=== PATIENT | male | born 1975 | race Caucasian/White ===

== ENCOUNTER 2018-10-26 20:13 | Emergency (ER) | payer SELFPAY ==
[2018-10-26 20:20] VITALS: BP 151/80; PULSE 81; RESP 16; TEMP 97.6; O2SAT 100
[2018-10-26] MEDS ORDERED: Sodium Chloride 0.9% 1,000 ML IV ONE (20:24)
--- NOTE | 2018-10-26 20:24 | C.PDOC ---
History Of Present Illness 43 year old male presents to the ED c/o abdominal pain and back pain for the past week. Patient also reports for the past 5 days, 5-8 loose stools daily. Patient states he took some imodium without relief. Patient denies fever, chill s, nausea, vomit, rash, dyauria, hematuria, recent travel. Time Seen by Provider: 10/26/18 20:23 Chief Complaint (Nursing): Abdominal Pain History Per: Patient History/Exam Limitations: no limitations Onset/Duration Of Symptoms: Days (5) Current Symptoms Are (Timing): Still Present Pain Scale Rating Of: 4 Location Of Pain/Discomfort: Epigastric Quality Of Discomfort: "Pain" Associated Symptoms: Diarrhea. denies: Fever, Nausea, Vomiting, Constipation, Urinary Symptoms Recent travel outside of the [place]: No Additional History Per: Patient Past Medical History Reviewed: Historical Data, Nursing Documentation, Vital Signs Vital Signs: Last Vital Signs Temp 97.6 F 10/26/18 20:18 Pulse 81 10/26/18 20:18 Resp 16 10/26/18 20:18 BP 151/80 H 10/26/18 20:18 Pulse Ox 100 10/26/18 20:18 - Medical History PMH: No Chronic Diseases Surgical History: No Surg Hx Family History: States: Unknown Family Hx - Social History Hx Alcohol Use: No Hx Substance Use: No Review Of Systems Constitutional: Negative for: Fever, Chills Cardiovascular: Negative for: Chest Pain Respiratory: Negative for: Shortness of Breath Gastrointestinal: Positive for: Abdominal Pain, Diarrhea. Negative for: Nausea, Vomiting Genitourinary: Negative for: Dysuria, Hematuria Musculoskeletal: Negative for: Back Pain Skin: Negative for: Rash Neurological: Negative for: Weakness, Numbness Physical Exam - Physical Exam Appears: Non-toxic, No Acute Distress Skin: Warm, Dry Head: Normacephalic Eye(s): bilateral: Normal Inspection Neck: Supple Chest: Symmetrical Cardiovascular: Rhythm Regular Respiratory: No Rales, No Rhonchi, No Wheezing Gastrointestinal/Abdominal: Soft, Tenderness (mid epigastric), No Guarding, No Rebound Back: No CVA Tenderness Extremity: Bilateral: Atraumatic, Normal Color And Temperature, Normal ROM Neurological/Psych: Oriented x3, Normal Speech, Normal Cognition Gait: Steady ED Course And Treatment - Laboratory Results Result Diagrams: 10/26/18 21:10 10/26/18 21:10 O2 Sat by Pulse Oximetry: 100 (ON RA) Pulse Ox Interpretation: Normal - CT Scan/US CT abd/pelvis Other Rad Studies (CT/US): Read By Radiologist, Radiology Report Reviewed CT/US Interpretation: EXAM: CT Abdomen and Pelvis with IV contrast. CLINICAL HISTORY: Abd pain/back pain/diarrhea. TECHNIQUE: Axial computed tomography images of the abdomen and pelvis with intravenous contrast. CONTRAST: With intravenous contrast. COMPARISON: None provided. FINDINGS: LUNG BASES: The lung bases appear clear. No pleural effusions are seen. LIVER: There is hepatomegaly. The liver measured approximately 19.5 cm in the midclavicular line. No hepatic mass. GALLBLADDER AND BILE DUCTS: The gallbladder appears within normal limits. No radioopaque gallstones are seen. No biliary ductal dilatation is evident. PANCREAS: Unremarkable. SPLEEN: Unremarkable. ADRENA L GLANDS: Unremarkable. KIDNEYS, URETERS, AND BLADDER: The kidneys appear within normal limits. There is no hydronephrosis or hydroureter. No urinary calculi are seen. The urinary bladder is normal in size and configuration. STOMACH AND BOWEL: Unremarkable appearance of the stomach. Circumferential surgical sutures are seen in the left upper abdomen thought to represent a site of previous small intestinal anastomosis. This segment is somewhat distended with liquid and solid stool. No definite evidence of bowel obstruction. There is some mucosal wall edematous thickening throughout the small and large intestine thought compatible with diffuse enterocolitis. Infectious or inflammatory e tiologies are thought most likely. APPENDIX: No evidence of acute appendicitis on CT examination. PERITONEUM: No free fluid. No free air. LYMPH NODES: No lymphadenopathy is evident. REPRODUCTIVE: Unremarkable as visualized. VASCULATURE: No evidence of abdominal aortic aneurysm. BONES: No aggressive appearing osseous lesion. No acute osseous pathology evident. IMPRESSION: 1. Evidence of diffuse enterocolitis. 2. A small intestinal surgical anastomosis seen within the left upper abdomen appears somewhat distended with solid and liquid stool. 3. Hepatomegaly. Measurement is given above. . Electronically signed on Oct 26, 2018 10:54:38 PM EST by: Rey Kirby M.D., MADDY Certified By ABR & CBC[employer]. Fellowship Trained MRI and CT Specialist Progress Note: Plan: - Labs. - Protonix 40 mg IVP. - IV fluids. - UA Reevaluation Time: 23:07 Reassessment Condition: Improved Medical Decision Making Medical Decision Making: Upon provider reevaluation patient is feeling better, is medically stable, and requires no further treatment in the ED at this time. Patient will be discharged home with Rx for zofran, flagyl,tramadol . Counseling was provided and all questions were answered regarding diagnosis and need for follow up with the referred clinic. There is agreement to discharge plan. Return if symptoms persist or worsen. Disposition Counseled Patient/Family Regarding: Studies Performed, Diagnosis, Need For Followup, Rx Given - Disposition Referrals: [facility] [Outside] [facility] [Outside] Disposition: HOME/ ROUTINE Disposition Time: 20:24 Condition: FAIR Additional Instructions: Please return if symptoms recur Prescriptions: Metronidazole [Flagyl] 500 mg PO TID #21 tablet Ondansetron ODT [Zofran ODT] 1 odt PO BID PRN #6 odt PRN Reason: Nausea/Vomiting traMADol [Ultram] 50 mg PO TID PRN #15 tab PRN Reason: Pain, Severe (8-10) Instructions: Acute Abdomen (Belly Pain), Adult (DC) Forms: [employer] (Micronesian) Print Language: ALBANIAN - Clinical Impression Clinical Impression: Abdominal pain - Scribe Statement The provider has reviewed the documentation as recorded by the Scribe Collin Pugh All medical record entries made by the Scribe were at my direction and personally dictated by me. I have reviewed the chart and agree that the record accurately reflects my personal performance of the history, physical exam, medical decision making, and the department course for this patient. I have also personally directed, reviewed, and agree with the discharge instructions and disposition.
[2018-10-26 21:13] LABS: BASO # 0.1 K/uL (0.0-0.2); BASO % 0.9 % (0.0-2.0); EOS # 0.1 K/uL (0.0-0.7); EOS % 1.3 % (0.0-4.0); HEMOGLOBIN 12.1 g/dL (12.0-18.0); LYMPH # 1.3 K/uL (1.0-4.3); LYMPH % 14.3 % (20.0-40.0); MEAN CELL VOLUME 86.5 fL (80.0-94.0); MEAN CORPUSCULAR HEMOGLOBIN 28.7 pg (27.0-31.0); MEAN CORPUSCULAR HGB CONC 33.2 g/dL (33.0-37.0); MEAN PLATELET VOLUME 8.2 fL (7.2-11.7); MONO # 0.8 K/uL (0.0-0.8); MONO % 9.5 % (0.0-10.0); NEUT # 6.5 K/uL (1.8-7.0); NRBC % 0.1 % (0.0-2.0); RBC 4.2 Mil/uL (4.40-5.90); RED CELL DISTRIBUTION WIDTH 13.4 % (11.5-14.5); WHITE BLOOD COUNT 8.8 K/uL (4.8-10.8)
[2018-10-26 21:18] LABS: URINE BILIRUBIN NEGATIVE (NEGATIVE); URINE BLOOD NEGATIVE (NEGATIVE); URINE CLARITY Clear (Clear); URINE COLOR Straw (YELLOW); URINE GLUCOSE (UA) NORMAL (Normal); URINE LEUKOCYTE ESTERASE NEG Leu/uL (Negative); URINE PROTEIN NEGATIVE (NEGATIVE); URINE UROBILINOGEN NORMAL mg/dL (0.2-1.0)
[2018-10-26 21:31] LABS: ALB/GLOB RATIO 1.1 (1.0-2.1); ALBUMIN 3.3 g/dL (3.5-5.0); ALT/SGPT 19 U/L (21-72); AST/SGOT 19 U/L (17-59); BLOOD UREA NITROGEN 11 mg/dL (9-20); CALCIUM 8.5 mg/dl (8.6-10.4); GFR NON-AFRICAN AMERICAN > 60; LIPASE 23 U/L (23-300)
[2018-10-26] MEDS ORDERED: Iodixanol 320 MG/ML 100 ML BOTTLE IV ONE (21:44)
--- NOTE | 2018-10-27 16:48 | CT ---
Date of service: 10/26/2018 PROCEDURE: CT Abdomen and Pelvis with contrast HISTORY: abd pain, back pain, diarrhea COMPARISON: None. TECHNIQUE: Following the intravenous administration of iodinated contrast material, a CT examination of the abdomen and pelvis was performed from the domes of the diaphragms to the symphysis pubis with reformatted datasets provided in axial, sagittal and coronal planes. Oral contrast was not administered as per referring physician request. Contrast dose: Visipaque 320, 100 cc Radiation dose: Total exam DLP = 520.81 mGy-cm. This CT exam was performed using one or more of the following dose reduction techniques: Automated exposure control, adjustment of the mA and/or kV according to patient size, and/or use of iterative reconstruction technique. FINDINGS: LOWER THORAX: Unremarkable. LIVER: Unremarkable. No gross lesion or ductal dilatation. GALLBLADDER AND BILE DUCTS: Unremarkable. PANCREAS: Unremarkable. No gross lesion or ductal dilatation. SPLEEN: Unremarkable. ADRENALS: Unremarkable. No mass. KIDNEYS AND URETERS: Unremarkable. No hydronephrosis. No solid mass. VASCULATURE: Unremarkable. No aortic aneurysm. No aortic atherosclerotic calcification or mural plaque present. BOWEL: Bowel is remarkable for postoperative anastomotic suture line identified at left upper quadrant bowel loop which is distended up to 5.0 cm. Variably mild to mildly distended loops of small large bowel are identified gas and stool in mildly distended bowel loops throughout the abdomen. There is slight swirling of the mesentery in the right upper quadrant however. Despite this pattern, there is no prominent dilatation transitioning into collapsed bowel. A definitive bowel obstruction pattern is not completely excluded and left upper quadrant dilated loop of bowel with anastomotic suture line may reflect intermittent or partial obstruction. This also may be postoperative deformity. Consider follow-up CT following oral contrast administration. APPENDIX: Normal appendix. PERITONEUM: Shotty and mildly enlarged central mesenteric and pericecal lymph node distribution may reflect mesenteric adenitis. No prominent ascites or free intra peritoneal gas collection identified. Limited pelvic fluid identified. BLADDER: Unremarkable. REPRODUCTIVE: Unremarkable. BONES: Advanced right hip osteoarthritis appreciated. OTHER FINDINGS: None. IMPRESSION: Complex bowel pattern including dilated loop of small bowel at the left upper quadrant with associated anastomotic suture line. No gross bowel dilatation is identified although there are numerous scattered segments of collapsed small and large bowel. Intermittent or partial small bowel obstruction is difficult to completely exclude, particularly given swelling pattern of central mesentery at the right paracentral abdomen. Please see discussion above. Trace pelvic ascites. Consider follow-up CT following oral contrast administration. The above interpretation is somewhat discrepant from the preliminary report provided by Nikhil, 10/26/2018 10:54 p.m..
== END 2018-10-26 20:23 | disposition home or self-care (01) ==
LOC: C.ER 20:13
DX: R10.9 Unspecified abdominal pain (principal)
CPT/HCPCS: 74177; 80053; 81001; 83690; 85025; 96374; 96376; 99281; C9113; J7030; Q9967

== ENCOUNTER 2018-11-06 22:35 | Emergency (ER) | payer SELFPAY ==
[2018-11-06 22:43] VITALS: RESP 20
[2018-11-06] MEDS ORDERED: Iohexol 240 (50 ml) PO STA (23:14)
[2018-11-06 23:17] LABS: BASO # 0.1 K/uL (0.0-0.2); BASO % 1.1 % (0.0-2.0); EOS # 0.1 K/uL (0.0-0.7); HEMOGLOBIN 11.1 g/dL (12.0-18.0); LYMPH # 1.2 K/uL (1.0-4.3); LYMPH % 13.2 % (20.0-40.0); MEAN CORPUSCULAR HGB CONC 33.1 g/dL (33.0-37.0); MEAN PLATELET VOLUME 8.5 fL (7.2-11.7); MONO # 1.2 K/uL (0.0-0.8); MONO % 13.4 % (0.0-10.0); NEUT # 6.6 K/uL (1.8-7.0); NEUT % 71.3 % (50.0-75.0); NRBC % 0.1 % (0.0-2.0); RBC 3.72 Mil/uL (4.40-5.90); RED CELL DISTRIBUTION WIDTH 15.5 % (11.5-14.5); WHITE BLOOD COUNT 9.2 K/uL (4.8-10.8)
[2018-11-06] MEDS ORDERED: Sodium Chloride 0.9% 1,000 ML IV ONE (23:19)
[2018-11-06 23:23] LABS: MEAN CELL VOLUME 90.5 fL (80.0-94.0)
--- NOTE | 2018-11-06 23:24 | C.PDOC ---
History Of Present Illness Patient presents to ED c/o abdominal pain, nausea, diarrhea for approx 2 weeks. Patient was seen in the ED on 10/26/18, and discharged home with Flagyl, Tramadol and Zofran ODT. He reports he finished his course of antibiotics and initially felt better, but then his symptoms returned. He denies fever, chest pain, SOB, cough, dysuria/hematuria. PSHx of SBO with bowel resection x2. Surgeon: Dr. Angie Go <Tracey Lucas - Last Filed: 11/07/18 00:31> History Per: Patient, Family () History/Exam Limitations: no limitations Onset/Duration Of Symptoms: Days (2 weeks) Current Symptoms Are (Timing): Still Present Severity: Moderate Location Of Pain/Discomfort: Diffuse Quality Of Discomfort: "Pain" Associated Symptoms: Nausea, Diarrhea. denies: Fever, Chills, Vomiting, Urinary Symptoms <Tracey Lucas - Last Filed: 11/07/18 00:31> <Les Zhang - Last Filed: 11/07/18 03:16> Time Seen by Provider: 11/06/18 22:52 Chief Complaint (Nursing): Abdominal Pain Past Medical History Reviewed: Historical Data, Nursing Documentation, Vital Signs Vital Signs: Last Vital Signs Temp 97.6 F 11/06/18 22:37 Pulse 83 11/06/18 22:37 Resp 20 11/06/18 22:37 BP 120/76 11/06/18 22:37 Pulse Ox 100 11/06/18 22:37 - Medical History PMH: No Chronic Diseases Other Surgeries: SBO with resection x 2 Family History: States: No Known Family Hx - Social History Hx Alcohol Use: No Hx Substance Use: No - Immunization History Hx Tetanus Toxoid Vaccination: No Hx Influenza Vaccination: No Hx Pneumococcal Vaccination: No <Tracey Lucas - Last Filed: 11/07/18 00:31> Vital Signs: Last Vital Signs Temp 98.3 F 11/07/18 00:45 Pulse 72 11/07/18 02:00 Resp 20 11/07/18 02:00 BP 124/76 11/07/18 02:00 Pulse Ox 97 11/07/18 02:00 <Les Zhang - Last Filed: 11/07/18 03:16> Review Of Systems Constitutional: Negative for: Fever, Chills Cardiovascular: Negative for: Chest Pain, Palpitations Respiratory: Negative for: Cough, Shortness of Breath Gastrointestinal: Positive for: Nausea, Abdominal Pain, Diarrhea. Negative for: Vomiting Genitourinary: Negative for: Dysuria, Hematuria Skin: Negative for: Rash <Tracey Lucas - Last Filed: 11/07/18 00:31> Physical Exam - Physical Exam Appears: Well, Non-toxic, In Acute Distress (in mild pain) Skin: Normal Color, Warm, Dry Oral Mucosa: Moist Cardiovascular: Rhythm Regular Respiratory: Normal Breath Sounds, No Rales, No Rhonchi, No Wheezing Gastrointestinal/Abdominal: Bowel Sounds, Soft, Tenderness (mild diffuse TTP greatest at periumbilical area), Other (midline surgical scar) Back: Normal Inspection, No CVA Tenderness Neurological/Psych: Oriented x3 <Tracey Lucas - Last Filed: 11/07/18 00:31> ED Course And Treatment - Laboratory Results Result Diagrams: 11/06/18 23:15 11/06/18 23:15 O2 Sat by Pulse Oximetry: 100 (RA) Pulse Ox Interpretation: Normal Progress Note: Blood work, UA, CT scan abd/pelvis with PO contrast ordered and reviewed. Patient given IV NS bolus, IV toradol. <Tracey Lcuas - Last Filed: 11/07/18 00:31> - Laboratory Results Result Diagrams: 11/06/18 23:15 11/06/18 23:15 Lab Results: Total Bilirubin 0.5 mg/dL (0.2-1.3) 11/06/18 23:15 AST 19 U/L (17-59) 11/06/18 23:15 ALT 15 U/L (21-72) L D 11/06/18 23:15 Alkaline Phosphatase 69 U/L (38-126) 11/06/18 23:15 Total Protein 5.8 g/dL (6.3-8.3) L 11/06/18 23:15 Albumin 3.1 g/dL (3.5-5.0) L 11/06/18 23:15 Globulin 2.7 gm/dL (2.2-3.9) 11/06/18 23:15 Albumin/Globulin Ratio 1.2 (1.0-2.1) 11/06/18 23:15 Lipase 43 U/L (23-300) 11/06/18 23:15 Urine Color Straw (YELLOW) 11/07/18 00:39 Urine Clarity Clear (Clear) 11/07/18 00:39 Urine pH 7.0 (5.0-8.0) 11/07/18 00:39 Ur Specific Alliance 1.006 (1.003-1.030) 11/07/18 00:39 Urine Protein Negative mg/dL (NEGATIVE) 11/07/18 00:39 Urine Glucose (UA) Normal mg/dL (Normal) 11/07/18 00:39 Urine Ketones Negative mg/dL (NEGATIVE) 11/07/18 00:39 Urine Blood Negative (NEGATIVE) 11/07/18 00:39 Urine Nitrate Negative (NEGATIVE) 11/07/18 00:39 Urine Bilirubin Negative (NEGATIVE) 11/07/18 00:39 Urine Urobilinogen 4.0 mg/dL (0.2-1.0) 11/07/18 00:39 Ur Leukocyte Esterase Neg Denise/uL (Negative) 11/07/18 00:39 Urine WBC (Auto) < 1 /hpf (0-5) 11/07/18 00:39 Urine RBC (Auto) < 1 /hpf (0-3) 11/07/18 00:39 <Les Zhang - Last Filed: 11/07/18 03:16> Disposition <Tracey Lucas - Last Filed: 11/07/18 00:31> Counseled Patient/Family Regarding: Diagnosis - Disposition Disposition Time: 03:07 - POA Present On Arrival: None <Les Zhang - Last Filed: 11/07/18 03:16> - Disposition Referrals: [facility] [Outside] Disposition: HOME/ ROUTINE Condition: STABLE Prescriptions: Ciprofloxacin HCl [Cipro] 250 mg PO BID #14 tablet Metronidazole [Flagyl] 250 mg PO TID #20 tab Tramadol HCl/Acetaminophen [Ultracet Tablet] 1 each PO Q6 #10 tablet Instructions: Acute Abdomen (Belly Pain), Inflammatory Bowel Disease Forms: [employer] (Arabic), Gen Discharge Inst Cameroonian Print Language: DANISH - Clinical Impression Clinical Impression: Abdominal pain, Enteritis
[2018-11-06] MEDS ORDERED: Iohexol 240 (50 ml) ONE (23:26)
[2018-11-06 23:59] LABS: ALB/GLOB RATIO 1.2 (1.0-2.1); ALBUMIN 3.1 g/dL (3.5-5.0); ALT/SGPT 15 U/L (21-72); AST/SGOT 19 U/L (17-59); BLOOD UREA NITROGEN 18 mg/dL (9-20); CALCIUM 8.2 mg/dl (8.6-10.4); GFR NON-AFRICAN AMERICAN > 60; LIPASE 43 U/L (23-300)
[2018-11-07 00:45] LABS: URINE BILIRUBIN NEGATIVE (NEGATIVE); URINE BLOOD NEGATIVE (NEGATIVE); URINE CLARITY Clear (Clear); URINE COLOR Straw (YELLOW); URINE GLUCOSE (UA) NORMAL (Normal); URINE LEUKOCYTE ESTERASE NEG Leu/uL (Negative); URINE PROTEIN NEGATIVE (NEGATIVE)
[2018-11-07 01:59] VITALS: TEMP 98.3; O2SAT 97
[2018-11-07 02:02] VITALS: BP 124/76; PULSE 72
--- NOTE | 2018-11-07 11:48 | RAD ---
Date of service: 11/06/2018 PROCEDURE: Radiographs of the chest and abdomen (obstructive series) HISTORY: Abdominal pain, nausea/vomiting COMPARISON: No prior. TECHNIQUE: AP radiograph of the chest, with upright and supine radiographs of the abdomen. FINDINGS: CHEST: Lungs: The lungs are well inflated and clear. Cardiovascular: Normal size heart. No pulmonary vascular congestion. No aortic atherosclerotic calcification present Pleura: No pleural fluid. No pneumothorax. Other findings: None. ABDOMEN AND PELVIS: Bowel: The there is moderate amount of stool in the ascending colon. There are running sutures in the left mid abdomen. The bowel gas pattern is nonobstructive. Free air: None. Bones: Unremarkable. Other findings: None. IMPRESSION: Constipation. Nonobstructive bowel gas pattern. Clear lungs.
--- NOTE | 2018-11-07 11:54 | CT ---
PROCEDURE: CT Abdomen and Pelvis without IV contrast. HISTORY: abd pain, nausea, h/o SBO COMPARISON: CT abdomen and pelvis performed 10/26/18 TECHNIQUE: Contiguous axial images of the abdomen and pelvis. Oral contrast was administered. No IV contrast given. Coronal and Sagittal reformats generated and reviewed. Radiation dose: Total exam DLP = 345.51 mGy-cm. This CT exam was performed using one or more of the following dose reduction techniques: Automated exposure control, adjustment of the mA and/or kV according to patient size, and/or use of iterative reconstruction technique. FINDINGS: There is limited evaluation of the solid organs without the administration of IV contrast. LOWER THORAX: 6 mm pulmonary nodule, lingula. No visible consolidation, pleural effusion, or pneumothorax. Visualized portions of the heart appear within normal limits of size. LIVER: Hepatomegaly. GALLBLADDER AND BILE DUCTS: Unremarkable unenhanced appearance. PANCREAS: Unremarkable unenhanced appearance. SPLEEN: Unremarkable unenhanced appearance. ADRENALS: Unremarkable unenhanced appearance. KIDNEYS AND URETERS: No hydronephrosis or obstructing renal calculus. BLADDER: Decompressed urinary bladder limits evaluation. REPRODUCTIVE: Unremarkable. APPENDIX: The appendix is not identified. No secondary signs of acute appendicitis. BOWEL: The stomach is nondistended. The bowel loops appear within normal limits of caliber without evidence of intestinal obstruction. Extensive small bowel wall thickening; correlate clinically for enteritis. PERITONEUM: Small pelvic free fluid. No definite free air. LYMPH NODES: Scattered mesenteric/retroperitoneal lymph nodes, nonspecific. VASCULATURE: No aortic aneurysm. BONES: Osseous demineralization. Degenerative changes. Advanced right hip joint space narrowing OTHER FINDINGS: None. IMPRESSION: Extensive small bowel wall thickening; correlate clinically for enteritis. Small pelvic free fluid. 6 mm pulmonary nodule, lingula. Correlate with prior outside imaging if available of the chest. According to 2017 Fleischner criteria, the patient is low or high risk, this nodule may be followed with CT at 6-12 months is recommended and 18-24 months. Preliminary impression was provided by [employer]. Study marked for PA review.
== END 2018-11-07 04:07 | disposition home or self-care (01) ==
LOC: C.ER 22:35
DX: K52.9 Noninfective gastroenteritis and colitis, unspecified (principal); R10.9 Unspecified abdominal pain
CPT/HCPCS: 74022; 74176; 80053; 81001; 83690; 85025; 96374; 99284; J1885; J7030; Q9966

== ENCOUNTER 2018-11-25 09:29 | Emergency (ER) | payer OTHER ==
[2018-11-25 10:53] LABS: BASO # 0.1 K/uL (0.0-0.2); BASO % 1.3 % (0.0-2.0); EOS # 0.3 K/uL (0.0-0.7); EOS % 4.2 % (0.0-4.0); LYMPH # 1.3 K/uL (1.0-4.3); LYMPH % 20.4 % (20.0-40.0); MEAN CELL VOLUME 91.1 fL (80.0-94.0); MEAN CORPUSCULAR HEMOGLOBIN 29.5 pg (27.0-31.0); MEAN CORPUSCULAR HGB CONC 32.4 g/dL (33.0-37.0); MEAN PLATELET VOLUME 9.6 fL (7.2-11.7); MONO # 0.9 K/uL (0.0-0.8); MONO % 15.2 % (0.0-10.0); NEUT # 3.6 K/uL (1.8-7.0); NEUT % 58.9 % (50.0-75.0); NRBC % 0.2 % (0.0-2.0); RBC 4.4 Mil/uL (4.40-5.90); RED CELL DISTRIBUTION WIDTH 14.7 % (11.5-14.5); WHITE BLOOD COUNT 6.2 K/uL (4.8-10.8)
[2018-11-25 11:09] LABS: ALB/GLOB RATIO 1.3 (1.0-2.1); ALBUMIN 3.3 g/dL (3.5-5.0); ALT/SGPT 13 U/L (21-72); AST/SGOT 17 U/L (17-59); BLOOD UREA NITROGEN 18 mg/dL (9-20); CALCIUM 8.3 mg/dl (8.6-10.4); GFR NON-AFRICAN AMERICAN > 60; LIPASE 42 U/L (23-300)
[2018-11-25 11:14] LABS: SQUAMOUS EPITHIAL < 1 /hpf (0-5); URINE BILIRUBIN NEGATIVE (NEGATIVE); URINE BLOOD NEGATIVE (NEGATIVE); URINE CLARITY Clear (Clear); URINE COLOR Yellow (YELLOW); URINE GLUCOSE (UA) NORMAL (Normal); URINE LEUKOCYTE ESTERASE NEG Leu/uL (Negative); URINE PROTEIN NEGATIVE (NEGATIVE)
[2018-11-25] MEDS ORDERED: Sodium Chloride 0.9% 1,000 ML IV ONE (11:24)
[2018-11-25] MEDS ORDERED: Sodium Chloride 0.9% 1,000 ML ONE (11:51)
--- NOTE | 2018-11-25 12:29 | C.PDOC ---
History Of Present Illness 43 y/o male, with history of questionable SBO that required abdominal surgery several years ago for unknown reason, was seen on 10/26/18 and 11/06/18 for abdominal pain and treated for enteritis with antibiotics. Patient comes in today complaining that the pain came back, and is located on the left side. He denies fever, chills, nausea, vomiting, or diarrhea. Reports he had soft bowel movement today. Patient states he hasnt taken any medications for the pain. Time Seen by Provider: 11/25/18 10:11 Chief Complaint (Nursing): Abdominal Pain History Per: Patient History/Exam Limitations: no limitations Onset/Duration Of Symptoms: Hrs Current Symptoms Are (Timing): Still Present Past Medical History Reviewed: Historical Data, Nursing Documentation, Vital Signs Vital Signs: Last Vital Signs Temp 98.7 F 11/25/18 09:49 Pulse 78 11/25/18 09:49 Resp 17 11/25/18 09:49 BP 123/76 11/25/18 09:49 Pulse Ox 98 11/25/18 09:49 Family History: States: No Known Family Hx - Social History Hx Alcohol Use: No Hx Substance Use: No - Immunization History Hx Tetanus Toxoid Vaccination: No Hx Influenza Vaccination: No Hx Pneumococcal Vaccination: No Review Of Systems Constitutional: Negative for: Fever, Chills Cardiovascular: Negative for: Chest Pain Respiratory: Negative for: Shortness of Breath Gastrointestinal: Positive for: Abdominal Pain. Negative for: Nausea, Vomiting, Diarrhea Genitourinary: Negative for: Dysuria, Hematuria Musculoskeletal: Negative for: Back Pain Skin: Negative for: Rash Physical Exam - Physical Exam Appears: Non-toxic, No Acute Distress Skin: Warm, Dry, No Rash Head: Atraumatic, Normacephalic Eye(s): bilateral: PERRL, EOMI Oral Mucosa: Moist Neck: Supple Chest: No Tenderness Cardiovascular: Rhythm Regular, No Murmur Respiratory: No Rales, No Rhonchi, No Wheezing, Other (CTA bilaterally) Gastrointestinal/Abdominal: Soft, Tenderness (mild left hypogastric tenderness), No Distention, No Guarding, No Rebound, Other (vertical well-healed midline surgical scar) Back: No CVA Tenderness Extremity: No Pedal Edema, No Swelling Extremity: Bilateral: Atraumatic, Normal ROM Neurological/Psych: Oriented x3, Normal Speech, Normal Cognition ED Course And Treatment - Laboratory Results Result Diagrams: 11/25/18 10:50 11/25/18 10:50 Lab Results: Total Bilirubin 0.6 mg/dL (0.2-1.3) 11/25/18 10:50 AST 17 U/L (17-59) 11/25/18 10:50 ALT 13 U/L (21-72) L 11/25/18 10:50 Alkaline Phosphatase 79 U/L (38-126) 11/25/18 10:50 Total Protein 5.8 g/dL (6.3-8.3) L 11/25/18 10:50 Albumin 3.3 g/dL (3.5-5.0) L 11/25/18 10:50 Globulin 2.6 gm/dL (2.2-3.9) 11/25/18 10:50 Albumin/Globulin Ratio 1.3 (1.0-2.1) 11/25/18 10:50 Lipase 42 U/L (23-300) 11/25/18 10:50 Urine Color Yellow (YELLOW) 11/25/18 10:50 Urine Clarity Clear (Clear) 11/25/18 10:50 Urine pH 7.0 (5.0-8.0) 11/25/18 10:50 Ur Specific [place] 1.021 (1.003-1.030) 11/25/18 10:50 Urine Protein Negative mg/dL (NEGATIVE) 11/25/18 10:50 Urine Glucose (UA) Normal mg/dL (Normal) 11/25/18 10:50 Urine Ketones Negative mg/dL (NEGATIVE) 11/25/18 10:50 Urine Blood Negative (NEGATIVE) 11/25/18 10:50 Urine Nitrate Negative (NEGATIVE) 11/25/18 10:50 Urine Bilirubin Negative (NEGATIVE) 11/25/18 10:50 Urine Urobilinogen 2.0 mg/dL (0.2-1.0) 11/25/18 10:50 Ur Leukocyte Esterase Neg Denise/uL (Negative) 11/25/18 10:50 Urine WBC (Auto) < 1 /hpf (0-5) 11/25/18 10:50 Urine RBC (Auto) 2 /hpf (0-3) 11/25/18 10:50 Ur Squamous Epith Cells < 1 /hpf (0-5) 11/25/18 10:50 O2 Sat by Pulse Oximetry: 98 (RA) Pulse Ox Interpretation: Normal Medical Decision Making Medical Decision Making: Plan: --Labs --UA --Pepcid 20 mg IVP --IV fluids 1L pt with mild left sided abdominal pain. labs and urine ordered. pt has been seen in ed 2 times in last month 10/27 and 11/06, had ct exams both times with enteritis on both, discharged with antibiotics both timed which he completed. pt with minimal tenderness today left hypogastric anrea with no rebound or guarding. no distension. no associated f/c/ n,v or diarrhea. last bm today was soft. no indicaiton for another ct scan today. discussed with Dr Gabriella Pacheco from medicine, who recommends pt be seen tomorrow in med clinic with gi referral for colonoscopy (never had one). pt seen by surgical clinical reviewer; recommended gi and endoscopy. pt has been given pepcid in ed and has no abdominal pain at this time. will d/c with pepcid and clinic and gi f/u. dietary canges discussed with patient. pt found on stetcher eating doritos and drinking cola. Disposition Counseled Patient/Family Regarding: Studies Performed, Diagnosis, Need For Followup, Rx Given - Disposition Referrals: [facility] [Outside] Al Cunningham DO [Doctor Osteopathy] - Disposition: HOME/ ROUTINE Disposition Time: 13:25 Condition: IMPROVED Additional Instructions: Recomendamos que chase un seguimiento con la andia joao Doe el ; llame maana por la maana para hacer rosy dinesh. ([phone]) Si no puede ser visto all maana, llame a la clnica de la [place] al [phone] Cunningham. Se recomienda encarecidamente que obtenga rosy referencia para liz a un gastroenterlogo tanto para rosy colonoscopia ludin para rosy endoscopia. Siga las recomendaciones dietticas para rosy dieta blanda. Ravena omeprazol ludin se lo hayan recetado. Recommend that you follow up with [facility] on MondayNovember 26; call tomorrow morning to make an appointment., ([phone]) If you can not be seen there tomorrow, call the [facility] at [phone] Cunningham. It is highly recommended that you get a referral to see lokie engineer for both a colonoscopy and endoscopy. Follow dietary recommendations for bland diet. Take omeprazole as prescribed. Instructions: Gastritis (DC), Ulcer and Gastritis Diet Forms: Gen Discharge Inst Bruneian, [employer] (Bruneian) Print Language: YORUBA - Clinical Impression Clinical Impression: Gastritis, Abdominal pain - PA / [employer] / Resident Statement MD/DO has reviewed & agrees with the documentation as recorded. - Scribe Statement The provider has reviewed the documentation as recorded by the Scribe Maxine Shrestha All medical record entries made by the Kam were at my direction and personally dictated by me. I have reviewed the chart and agree that the record accurately reflects my personal performance of the history, physical exam, medical decision making, and the department course for this patient. I have also personally directed, reviewed, and agree with the discharge instructions and disposition.
--- NOTE | 2018-11-25 12:53 | CP.PCM.CON ---
History of Present Illness - History of Present Illness History of Present Illness: General Surgery - Dr. Go Pt is a 43 yo M w/ hx of ex-lap for SBO with small bowel resection many years ago, presenting to hospital with LUQ abdominal pain x1day. Pt states he's had the pain for a few weeks on and off but it seemed to get better after he took antibiotics a few weeks ago. He describes the pain as burning type pain in the LUQ and radiating to the back with associated belching, worse with laying down. He states that he has been trying to treat the pain with Aleve and takes about 3 pills at a time. He denies any nausea/vomiting/fevers/chills/sob/chest pain. He states that he has been having bowel movements including this morning and is passing flatus from below. Pt states he has never seen a GI doctor. Review of Systems - Review of Systems All systems: reviewed and no additional remarkable complaints except (as per HPI) Past Patient History - Past Social History Smoking Status: Never Smoked - PSYCHIATRIC Hx Substance Use: No - SURGICAL HISTORY Hx Surgeries: Yes Other/Comment: "fixed a blockage in my intestines." - ANESTHESIA Hx Anesthesia: Yes Hx Anesthesia Reactions: No Meds Allergies/Adverse Reactions: Allergies Allergy/AdvReac Type Severity Reaction Status Date / Time No Known Allergies Allergy Verified 11/25/18 09:51 Physical Exam - Constitutional Appears: Well, No Acute Distress - Head Exam Head Exam: ATRAUMATIC, NORMOCEPHALIC - Eye Exam Eye Exam: Normal appearance - Respiratory Exam Respiratory Exam: NORMAL BREATHING PATTERN. absent: Respiratory Distress - Cardiovascular Exam Cardiovascular Exam: REGULAR RHYTHM - GI/Abdominal Exam GI & Abdominal Exam: Soft. absent: Distended, Firm, Guarding, Hernia, Rebound, Rigid, Tenderness - Neurological Exam Neurological exam: Alert, Oriented x3 - Psychiatric Exam Psychiatric exam: Normal Affect, Normal Mood - Skin Skin Exam: Dry, Intact Results - Vital Signs Recent Vital Signs: Last Vital Signs Temp 98.7 F 11/25/18 09:49 Pulse 78 11/25/18 09:49 Resp 17 11/25/18 09:49 BP 123/76 11/25/18 09:49 Pulse Ox 98 11/25/18 12:29 - Labs Result Diagrams: 11/25/18 10:50 11/25/18 10:50 Labs: Laboratory Results - last 24 hr 11/25/18 11/25/18 11/25/18 10:50 10:50 10:50 WBC 6.2 RBC 4.40 Hgb 13.0 Hct 40.1 MCV 91.1 MCH 29.5 MCHC 32.4 L RDW 14.7 H Plt Count 350 MPV 9.6 Neut % (Auto) 58.9 Lymph % (Auto) 20.4 [place] % (Auto) 15.2 H Eos % (Auto) 4.2 H Baso % (Auto) 1.3 Neut # (Auto) 3.6 Lymph # (Auto) 1.3 [place] # (Auto) 0.9 H Eos # (Auto) 0.3 Baso # (Auto) 0.1 Sodium 139 Potassium 3.7 Chloride 101 Carbon Dioxide 31 H Anion Gap 11 BUN 18 Creatinine 0.5 L Est GFR ( Amer) > 60 Est GFR (Non-Af Amer) > 60 Random Glucose 90 Calcium 8.3 L Total Bilirubin 0.6 AST 17 ALT 13 L Alkaline Phosphatase 79 Total Protein 5.8 L Albumin 3.3 L Globulin 2.6 Albumin/Globulin Ratio 1.3 Lipase 42 Urine Color Yellow Urine Clarity Clear Urine pH 7.0 Ur Specific [place] 1.021 Urine Protein Negative Urine Glucose (UA) Normal Urine Ketones Negative Urine Blood Negative Urine Nitrate Negative Urine Bilirubin Negative Urine Urobilinogen 2.0 Ur Leukocyte Esterase Neg Urine WBC (Auto) < 1 Urine RBC (Auto) 2 Ur Squamous Epith Cells < 1 Assessment & Plan - Assessment and Plan (Free Text) Assessment: 43 yo M w/ hx of ex-lap and small bowel resection for SBO, presenting with LUQ abdominal pain -Symptoms appear most likely related to gastritis -Instucted patient to take only 1 Aleve as directed on the bottle for pain -Recommend DC home with anti-ulcer medication and F/U with GI as outpatient for possible endoscopy -No surgical intervention needed DW Dr Donavan Lockhart PGY4
[2018-11-25 13:52] VITALS: BP 117/69; PULSE 79; RESP 20; TEMP 98.6
[2018-11-25 14:01] VITALS: O2SAT 98
== END 2018-11-25 13:52 | disposition home or self-care (01) ==
LOC: MERGE 09:29 → C.ER 09:29
DX: K29.70 Gastritis, unspecified, without bleeding (principal); R10.9 Unspecified abdominal pain
CPT/HCPCS: 80053; 81001; 83690; 85025; 96361; 96374; 99284; J7030

== ENCOUNTER 2018-11-27 01:16 | Emergency (ER) | payer OTHER | END 2018-11-27 06:17 | disposition home or self-care (01) | LOC: C.ER 01:16 ==

== ENCOUNTER 2018-12-29 15:33 | Emergency (ER) | payer OTHER ==
[2018-12-29 15:33] VITALS: BMI 23.6
[2018-12-29 15:51] VITALS: RESP 18
[2018-12-29] MEDS ORDERED: Sodium Chloride 0.9% 1,000 ML IV ONE (16:06)
--- NOTE | 2018-12-29 16:14 | C.PDOC ---
History Of Present Illness 43 y/o male presents to ED complaining of abdominal pain and vomiting. Patient has PMHx of H. Pylori and was treated with antibiotics for 2 weeks, finished. States since yesterday, he developed upper abdominal pain and vomiting, non bloody. Patient also has history of laparotomy. Patient states she has normal bowel movement. Time Seen by Provider: 12/29/18 16:01 Chief Complaint (Nursing): Abdominal Pain History Per: Patient History/Exam Limitations: no limitations Onset/Duration Of Symptoms: Days Current Symptoms Are (Timing): Still Present Past Medical History Reviewed: Historical Data, Nursing Documentation, Vital Signs Vital Signs: Last Vital Signs Temp 98.7 F 12/29/18 15:43 Pulse 99 H 12/29/18 15:43 Resp 18 12/29/18 15:43 BP 110/71 12/29/18 15:43 Pulse Ox 100 12/29/18 15:43 - Medical History PMH: Obstructive Bowel (SBO) Denies: Crohn's Disease, HIV, Chronic Kidney Disease - [facility] Procedures DESTRUCT PERITONEAL TISS (01/26/14) INFLUENZA VACCINATION (06/23/13) INJECT/INFUSE NEC (02/23/14) INTRODUCTION OF SERUM/TOX/VACCINE INTO MUSCLE, PERC APPROACH (10/26/17) OTH LYSIS-PERITONEAL ADHES (01/26/14) PART SM BOWEL RESECT NEC (06/23/13) Family History: States: No Known Family Hx - Social History Hx Alcohol Use: No Hx Substance Use: No - Immunization History Hx Tetanus Toxoid Vaccination: No Hx Influenza Vaccination: No Hx Pneumococcal Vaccination: No Review Of Systems Except As Marked, All Systems Reviewed And Found Negative. Constitutional: Negative for: Fever, Chills Cardiovascular: Negative for: Chest Pain Respiratory: Negative for: Shortness of Breath Gastrointestinal: Positive for: Vomiting, Abdominal Pain. Negative for: Nausea, Diarrhea Genitourinary: Negative for: Dysuria, Hematuria Musculoskeletal: Negative for: Back Pain Physical Exam - Physical Exam Appears: Non-toxic, No Acute Distress Skin: Warm, Dry Head: Atraumatic, Normacephalic Eye(s): bilateral: Normal Inspection Oral Mucosa: Moist Cardiovascular: Rhythm Regular, No Murmur Respiratory: Normal Breath Sounds, No Rales, No Rhonchi, No Wheezing Gastrointestinal/Abdominal: Soft, Tenderness (diffuse upper abdominal tenderness), No Guarding, No Rebound Extremity: Bilateral: Atraumatic, Normal ROM Neurological/Psych: Oriented x3, Normal Speech ED Course And Treatment - Laboratory Results Result Diagrams: 12/29/18 16:30 12/29/18 16:30 O2 Sat by Pulse Oximetry: 100 (RA) Pulse Ox Interpretation: Normal Medical Decision Making Medical Decision Making: Plan: --Labs --Obstructive Series --Pepcid 20 mg IVP --IV fluids --Toradol 30 mg IVP --Zofran 4 mg IVP Disposition Counseled Patient/Family Regarding: Diagnosis, Need For Followup, Rx Given - Disposition Disposition: HOME/ ROUTINE Disposition Time: 18:21 Condition: STABLE Prescriptions: Omeprazole Magnesium [Prilosec Otc] 20 mg PO DAILY #10 tablet. Ondansetron ODT [Zofran ODT] 4 mg PO TID #12 odt Instructions: Gastritis (DC) Forms: [employer] (Algerian), Gen Discharge Inst Wolof, [employer] (Wolof) Print Language: SAMMARINESE - POA Present On Arrival: None - Clinical Impression Clinical Impression: Gastritis - Scribe Statement The provider has reviewed the documentation as recorded by the Russellibned Shrestha Provider Attestation: All medical record entries made by the Russellibned were at my direction and personal ly dictated by me. I have reviewed the chart and agree that the record accurately reflects my personal performance of the history, physical exam, medical decision making, and the department course for this patient. I have also personally directed, reviewed, and agree with the discharge instructions and disposition.
[2018-12-29] MEDS ORDERED: Sodium Chloride 0.9% 1,000 ML ONE (16:21)
--- NOTE | 2018-12-29 16:31 | RAD ---
Date of service: 12/29/2018 PROCEDURE: Radiographs of the chest and abdomen (obstructive series) HISTORY: abd pain COMPARISON: Obstructive series dated 11/27/2018. TECHNIQUE: AP radiograph of the chest, with upright and supine radiographs of the abdomen. 3 views obtained. FINDINGS: CHEST: Lungs: Clear. Cardiovascular: Normal size heart. No pulmonary vascular congestion. No aortic atherosclerotic calcification present Pleura: No pleural fluid. No pneumothorax. Other findings: None. ABDOMEN AND PELVIS: Bowel: Unremarkable bowel gas pattern. No evidence of mechanical obstruction. Free air: None. Bones: Unremarkable. Other findings: Surgical material in the left upper quadrant. IMPRESSION: Unremarkable radiographs of chest and abdomen. No evidence of mechanical bowel obstruction.
[2018-12-29 16:39] LABS: BASO # 0.1 K/uL (0.0-0.2); BASO % 0.7 % (0.0-2.0); EOS # 0.1 K/uL (0.0-0.7); HEMOGLOBIN 12.4 g/dL (12.0-18.0); LYMPH # 1.2 K/uL (1.0-4.3); LYMPH % 12.7 % (20.0-40.0); MEAN CORPUSCULAR HEMOGLOBIN 29.9 pg (27.0-31.0); MEAN CORPUSCULAR HGB CONC 33.2 g/dL (33.0-37.0); MEAN PLATELET VOLUME 8.8 fL (7.2-11.7); MONO # 1.5 K/uL (0.0-0.8); MONO % 15.5 % (0.0-10.0); NEUT # 6.7 K/uL (1.8-7.0); NEUT % 70.1 % (50.0-75.0); RBC 4.14 Mil/uL (4.40-5.90); RED CELL DISTRIBUTION WIDTH 15.4 % (11.5-14.5); WHITE BLOOD COUNT 9.6 K/uL (4.8-10.8)
[2018-12-29 16:52] LABS: ALB/GLOB RATIO 1.3 (1.0-2.1); ALBUMIN 3.4 g/dL (3.5-5.0); ALT/SGPT 12 U/L (21-72); AST/SGOT 16 U/L (17-59); BLOOD UREA NITROGEN 12 mg/dL (9-20); CALCIUM 8.9 mg/dl (8.6-10.4); GFR NON-AFRICAN AMERICAN > 60; LIPASE 26 U/L (23-300)
[2018-12-29 18:36] VITALS: BP 122/70; PULSE 72; TEMP 98.2; O2SAT 98
== END 2018-12-29 18:36 | disposition home or self-care (01) ==
LOC: C.ER 15:33
DX: K29.70 Gastritis, unspecified, without bleeding (principal)
CPT/HCPCS: 74022; 80053; 83690; 85025; 96361; 96374; 96375; 99284; J1885; J2405; J7030